=== PATIENT | female | born 1990 | race Caucasian/White ===

== ENCOUNTER → 2023-05-18 08:30 | Outpatient (BNV) | payer OTHER, SELFPAY | PROVIDERS: Visit Provider Clinical Nurse Specialist Psychiatric/Mental Health | DX: F32.2 Major depressive disorder, single episode, severe without psychotic features (principal); F90.9 Attention-deficit hyperactivity disorder, unspecified type; F43.11 Post-traumatic stress disorder, acute | CPT/HCPCS: 99204; 99213 ==

== ENCOUNTER → 2023-05-22 14:20 | Outpatient (REF) | payer MEDICAID, SELFPAY ==
--- NOTE | 2023-05-22 14:40 | ECG_ITS ---
Test Reason : qtc prolongation Blood Pressure : / mmHG Vent. Rate : 060 BPM Atrial Rate : 060 BPM P-R Int : 162 ms QRS Dur : 082 ms QT Int : 384 ms P-R-T Axes : 040 070 042 degrees QTc Int : 384 ms Normal sinus rhythm Normal ECG No previous ECGs available Referred By: Belén Machado Electronically Signed By:QUYEN CAM
== END ==
LOC: HO.CARD 14:20
PROVIDERS: Visit Provider Clinical Nurse Specialist Psychiatric/Mental Health
DX: R94.31 Abnormal electrocardiogram [ECG] [EKG] (principal)
CPT/HCPCS: 93005

== ENCOUNTER 2023-05-30 08:30 | Outpatient (RCR) | payer OTHER, SELFPAY ==
[2023-05-17 13:20] VITALS: TEMP 36.7
[2023-05-17 13:23] VITALS: BMI 39.7
--- NOTE | 2023-05-17 16:26 | PC.ADMIT ---
Patient is a 32 year old who identifies as male using the pronouns he/him or they/them and goes by the name of Roderick. They were referred by [facility] where they were admitted from 04/18-04/26/23 for increased depression sxs with passive SI and increased panic and anxiety secondary to conflicts with their two roommates. Patient struggling with daily dissociation with chronic passive SI. 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 Patient is alert and oriented x4. Calm and cooperative. They report passive SI currently however denied any plans of intent to kill themselves. Patient was given a copy of their safety plan and I reviewed this with them. Medications reconciled with patient and [facility] discharge paperwork. They report they are taking medications as prescribed with the exception of Atomoxetine, magnesium citrate, and omeprazole as they stated their pharmacy is unable to get a hold of their prescriber. They report they have not had those medications since discharge from the hospital 04/26/23. In addition, patient stated they have an upcoming appointment to r/o an autism dx.
--- NOTE | 2023-05-18 09:33 | P.HPPSP_ITS ---
HPI Date of Service: 05/18/23 Chief Complaint: depression Sources of Information: patient interviewed, chart reviewed and crisis/core team assessment reviewed Additional Sources of Information: [facility] [place] discharge summary HPI Narrative: 32 yo single person who identifies as Roderick and uses he/him, they/them pronouns. pt referred by [facility] where they were admitted to inpt unit on 04/16/23 due to worsening anxiety with panic attacks and depression and passive suicidal ideation without plan or intent. pt discharged from [facility] on 04/27 on strattera 40 mg BID, Buproprion XL 450 mg daily, clonazepam 0.25 mg BID, Flexeril 10 mg tid, Magnesium oxide 400mg daily, propranolol LA 60 mg daily, testosterone 1.62 transdermal patch. trazodone 50 mg daily at bedtime. Pt admitted to [facility] as step down from inpatient. Pt reports peer conflict as a precipitant to worsening anxiety and depression; Plays Dungeons and Dragons several times a week and recently pushed out of a Monday group which precipitated anxiety, depression, and passive SI with urges to hurt self. Pt has outpatient prescriber Mono Quan but no outpatient therapist; has had difficulty finding an outpatient therapist for several years. Pt reports they recently started using CPAP for sleep apnea but no significant benefit yet; they deny side effects from medications. 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 hx self harm behaviors with cutting on arms and legs, burning self one inpatient admission 2022 at [facility] Medical Evaluation Reviewed: Yes notes from [facility] sleep apnea - has no CPAP r/o autism spectrum disorder - recommend neuropsych testing out patient low magnesium level migraines anemia GERD obesity transgender F-M ADHD PTSD PMFSH Narrative: pt report family histroy cadiac disease Family History: born and raised in [place] lived with mother and 4 siblings. father lived outside home but pt had good relationship with him tll he in 2005 Social History: Unemployed currently; lives in [place] with 2 roommate; has Associate degree in business and a certificate in dental hygiene Substance History: denies any use currently ; has used cannabis in past Trauma History: pt reports multiple childhood traumas; moved frequently as a child, loss of father at age 16 Diagnostics Vital Signs (24Hr): Vital Signs - 24 hr 05/17/23 13:20 Temperature 98.0 F BMI result Body Mass Index 39.7 Meds/Allergies Meds Home Medications Medication Instructions Recorded Confirmed Type atomoxetine 40 mg capsule 40 mg PO BID 05/17/23 05/17/23 History bupropion HCl 450 mg 24 hr tablet, 450 mg PO DAILY 05/17/23 05/17/23 History extended release clonazepam 0.25 mg disintegrating 0.25 mg PO BID PRN anxiety 05/17/23 05/17/23 History tablet cyclobenzaprine 10 mg tablet 10 mg PO TID PRN low back pain 05/17/23 05/17/23 History magnesium oxide 400 mg (241.3 mg 400 mg PO DAILY 05/17/23 05/17/23 History magnesium) tablet omeprazole 20 mg capsule,delayed 20 mg PO DAILY 05/17/23 05/17/23 History release propranolol 60 mg capsule,24 60 mg PO BEDTIME 05/17/23 05/17/23 History hr,extended release sumatriptan succinate 50 mg tablet See Rx Instructions .Route .COMPLEX 05/17/23 05/17/23 History testosterone 1.62 % (40.5 mg/2.5 2 packet topical DAILY 05/17/23 05/17/23 History gram) transdermal gel packet trazodone 50 mg tablet 50 mg PO BEDTIME insomnia 05/17/23 05/17/23 History Allergies Allergies Allergy/AdvReac Type Severity Reaction Status Date / Time hydrocodone Allergy Difficulty Verified 05/17/23 13:20 Breathing lactose Allergy Gastrointestinal Verified 05/17/23 13:20 Upset morphine Allergy Difficulty Verified 05/17/23 13:20 Breathing Sulfa (Sulfonamide Allergy Unknown Verified 05/17/23 13:20 Antibiotics) Mental Status Exam Mental Status Exam Patient Appearance: Well Grooomed and Appropriate Patient Orientation: Person, Place, Time and Situation Level of Consciousness: Awake Patient Behavior: Appropriate, Cooperative and Good Eye Contact Behavior Comments: rocking in chair Mood Description: Anxious Affect Description: Happy, Anxious and Nervous Patient Cognition Impaired: No Ability to Follow Directions: Fair Speech Pattern: Clear Memory Description: Working Impaired (by pt report) Hallucinations: None Delusions: Not Present Thought Process: Intact and Goal Oriented Thought Content: positive for Intact Judgement: Fair Assessment & Plan Assessment & Plan (1) Current severe episode of major depressive disorder without psychotic features: Status: Acute Code(s): F32.2 - Major depressive disorder, single episode, severe without psychotic features (2) ADHD: Status: Acute Code(s): F90.9 - Attention-deficit hyperactivity disorder, unspecified type (3) PTSD (post-traumatic stress disorder): Status: Acute Code(s): F43.10 - Post-traumatic stress disorder, unspecified Plan Assessment: 32 yo single person who identifies as Roderick and uses he/him, they/them pronouns. pt referred by [facility] where they were admitted to inpt unit on 04/16/23 due to worsening anxiety with panic attacks and depression and passive suicidal ideation without plan or intent. pt admitted to as step down from inpatient plan: admit to [facility] continue meds per hospital discharge EKG as pt concerned about family history of sudden LA meds refilled : omeprazole, magnesium and strattera group per [facility] protocol help pt identify outpatient therapist Patient educated on: diagnosis and medication risk/benefits Informed Consent: further education needed Reason for continued partial hosp. stay Substantial Risk for: harm to self, inability to function and rapid decompe nsation Certification I certify that partial hospital treatment is medically necessary due to the symptoms and problems resulting from the patient's mental illness and the failure to treat the patient at the partial hospital level of care would likely result in the patient requiring inpatient psychiatric care which could not be prevented at a less intensive level of care. Time Spent With Patient Time: Total time managing care of this patient today ____ minutes.
[2023-05-18 11:11] VITALS: BP 105/68; PULSE 64
--- NOTE | 2023-05-18 16:28 | HO.PHP ---
Clients case was reviewed and opened today in treatment team.
--- NOTE | 2023-05-22 09:34 | PC.NURSE ---
Crys Vaughn did not show up to the program this morning. I called Roderick and was unable to leave a message as mail box was full.
--- NOTE | 2023-05-22 09:37 | PC.NURSE ---
Roderick called the program and told staff that she overslept.
--- NOTE | 2023-05-23 10:46 | P.PNPSP_ITS ---
Subjective Subjective Date of Service: 05/23/23 Reason For Visit: depression Healthcare Proxy: No Guardianship: No Medical Problems Affecting Mental Status: No Interim History: Roderick is seen in a follow-up as part of the partial hospital program. They have been here for little over a week after transfer from inpatient level of care at [facility]. Current medications were reviewed and reconciled. They are going to be seeing their prescriber at the end of this week but is running short on their Wellbutrin XL 450 mg. A 2 week supply of the 300 and the 150 mg were sent to her pharmacy in [facility]. They deny any side effects. Program has been quite helpful to them. They will continue the program. Medication Compliance: Yes Side effects from medications: No Attending Groups: Yes Review of Systems Review of Systems Yes all other systems are reviewed and are negative Mental Status Exam Mental Status Exam Patient Appearance: Well Grooomed and Appropriate Patient Orientation: Person, Place, Time and Situation Level of Consciousness: Awake Patient Behavior: Appropriate, Cooperative and Good Eye Contact Behavior Comments: rocking in chair Mood Description: Anxious Affect Description: Happy, Anxious and Nervous Patient Cognition Impaired: No Ability to Follow Directions: Fair Speech Pattern: Clear Memory Description: Working Impaired (by pt report) Hallucinations: None Delusions: Not Present Thought Process: Intact and Goal Oriented Thought Content: positive for Intact Judgement: Fair Diagnostics Vital Signs (24Hr): BMI result Body Mass Index 39.7 Assessment & Plan Assessment & Plan (1) Current severe episode of major depressive disorder without psychotic features: Status: Acute Code(s): F32.2 - Major depressive disorder, single episode, severe without psychotic features Plan Current medications were reviewed and reconciled. A 2 week supply of Wellbutrin XL 300 mg and 150 mg were sent in. Patient educated on: medication risk/benefits Certification I certify that partial hospital treatment is medically necessary due to the symptoms and problems resulting from the patient's mental illness and the failure to treat the patient at the partial hospital level of care would likely result in the patient requiring inpatient psychiatric care which could not be prevented at a less intensive level of care. Total time managing care of this patient today ____ minutes. Discharge Plan Discharge Attending provider: Joey Ordoñez Medications: New atomoxetine 40 mg capsule 40 mg PO BID Qty: 60 0RF magnesium oxide 400 mg (241.3 mg magnesium) tablet 400 mg PO DAILY Qty: 30 0RF omeprazole 20 mg capsule,delayed release(DR/EC) 20 mg PO DAILY Qty: 60 0RF bupropion HCl [Wellbutrin XL] 300 mg tablet extended release 24 hr 300 mg PO QAM Qty: 14 0RF Rx Instructions: TDD 450 mg bupropion HCl [Wellbutrin XL] 150 mg tablet extended release 24 hr 150 mg PO QAM Qty: 14 0RF Rx Instructions: TDD 450 mg No Action cyclobenzaprine 10 mg tablet 10 mg PO TID PRN (Reason: low back pain) propranolol 60 mg capsule,extended release 24 hr 60 mg PO BEDTIME magnesium oxide 400 mg (241.3 mg magnesium) tablet 400 mg PO DAILY omeprazole 20 mg capsule,delayed release(DR/EC) 20 mg PO DAILY atomoxetine 40 mg capsule 40 mg PO BID clonazepam 0.25 mg tablet,disintegrating 0.25 mg PO BID PRN (Reason: anxiety) bupropion HCl 450 mg Tablet Extended Release 24 Hr 450 mg PO DAILY Patient Comments: Patient stated she is taking at HS. Advised to take in the AM. Medication education provided. trazodone 50 mg tablet 50 mg PO BEDTIME sumatriptan succinate 50 mg tablet See Rx Instructions .ROUTE .COMPLEX Rx Instructions: Take one dose at onset of Migraine. If ineffective in 2 hours take another dose. Max dose 2 tabs in 24 hours. testosterone 1.62 % (40.5 mg/2.5 gram) gel in packet 2 packet topical DAILY
--- NOTE | 2023-05-23 15:40 | HO.PHP ---
PHP staff member faxed over the OP therapy referral to [facility]. PHP staff is awaiting a scheduled appointment date and time.
--- NOTE | 2023-05-26 15:54 | HO.PHP ---
For the purpose of this documentation, Crys goes by Roderick. [facility] staff received a voicemail from [facility] with Roderick's upcoming OP therapy appointment. The next scheduled appointment date and time is June 01, 2023 at 11 AM with Bryanna Mcleod at the [facility]. Roderick was also provided with this information.
--- NOTE | 2023-05-30 09:49 | P.PNPSP_ITS ---
Subjective Subjective Date of Service: 05/30/23 Reason For Visit: depression Interim History: Roderick is seen for follow-up and discharge. They state that the day program was helpful. They are not quite sure whether she is ready to and today. They do have outpatient connections as far as a prescriber is concerned and an intake for getting it therapist. They talked about her living situation. Current medications were reviewed and they think they have enough medication until they meet with their prescriber this week. No changes were made. No Medication Compliance: Yes (Reported.) Side effects from medications: No Attending Groups: Yes Review of Systems Review of Systems Yes all other systems are reviewed and are negative Mental Status Exam Mental Status Exam Patient Appearance: Well Grooomed and Appropriate Patient Orientation: Person, Place, Time and Situation Level of Consciousness: Awake Patient Behavior: Appropriate, Cooperative and Good Eye Contact Behavior Comments: rocking in chair Mood Description: Anxious Affect Description: Happy, Anxious and Nervous Patient Cognition Impaired: No Ability to Follow Directions: Fair Speech Pattern: Clear Memory Description: Working Impaired (by pt report) Hallucinations: None Delusions: Not Present Thought Process: Intact and Goal Oriented Thought Content: positive for Intact Judgement: Fair Diagnostics Vital Signs (24Hr): BMI result Body Mass Index 39.7 Assessment & Plan Assessment & Plan (1) Current severe episode of major depressive disorder without psychotic features: Status: Acute Code(s): F32.2 - Major depressive disorder, single episode, severe without psychotic features Plan There being discharged today. No prescriptions called in. They have outpatient connections and a prescriber Patient educated on: medication risk/benefits Certification I certify that partial hospital treatment is medically necessary due to the symptoms and problems resulting from the patient's mental illness and the failure to treat the patient at the partial hospital level of care would likely result in the patient requiring inpatient psychiatric care which could not be prevented at a less intensive level of care. Total time managing care of this patient today ____ minutes. Discharge Plan Discharge Attending provider: Joey Ordoñez Additional Instructions: OP therapy appointment is scheduled June 01, 2023 at 11 AM with Bryanna Mcleod through the [facility]. [address] [place] [address]. . Medications: New atomoxetine 40 mg capsule 40 mg PO BID Qty: 60 0RF magnesium oxide 400 mg (241.3 mg magnesium) tablet 400 mg PO DAILY Qty: 30 0RF omeprazole 20 mg capsule,delayed release(DR/EC) 20 mg PO DAILY Qty: 60 0RF bupropion HCl [Wellbutrin XL] 300 mg tablet extended release 24 hr 300 mg PO QAM Qty: 14 0RF Rx Instructions: TDD 450 mg bupropion HCl [Wellbutrin XL] 150 mg tablet extended release 24 hr 150 mg PO QAM Qty: 14 0RF Rx Instructions: TDD 450 mg No Action cyclobenzaprine 10 mg tablet 10 mg PO TID PRN (Reason: low back pain) propranolol 60 mg capsule,extended release 24 hr 60 mg PO BEDTIME clonazepam 0.25 mg tablet,disintegrating 0.25 mg PO BID PRN (Reason: anxiety) trazodone 50 mg tablet 50 mg PO BEDTIME sumatriptan succinate 50 mg tablet See Rx Instructions .ROUTE .COMPLEX Rx Instructions: Take one dose at onset of Migraine. If ineffective in 2 hours take another dose. Max dose 2 tabs in 24 hours. testosterone 1.62 % (40.5 mg/2.5 gram) gel in packet 2 packet topical DAILY Stand Alone Forms: Patient Portal Discharge page Patient Education: Depression (DC)
== END 2023-05-30 23:59 | disposition home or self-care (01) ==
LOC: HO.PHPA 08:30
PROVIDERS: Visit Provider Psychiatry & Neurology Psychiatry
DX: F32.2 Major depressive disorder, single episode, severe without psychotic features (principal); F90.9 Attention-deficit hyperactivity disorder, unspecified type; F43.10 Post-traumatic stress disorder, unspecified; Z79.899 Other long term (current) drug therapy
CPT/HCPCS: 90791; 90853